=== PATIENT | female | born 1965 | race Caucasian/White ===

== ENCOUNTER → 2023-06-14 | Outpatient (CLI) | payer BC ==
[~2023-06-14] MED LIST: ISOVUE-370 76% 100ML VIAL As Ordered ONE
== END ==
LOC: M RAD 13:28
PROVIDERS: ATTEND Otolaryngology
DX: R22.1 Localized swelling, mass and lump, neck (principal); D17.0 Benign lipomatous neoplasm of skin and subcutaneous tissue of head, face and neck
CPT/HCPCS: 70491; Q9967

== ENCOUNTER 2023-09-26 09:17 | Day surgery (SDC) | payer BC ==
[~2023-09-26] VITALS: Ht 147.3 cm; Wt 73.0 kg
[~2023-09-26 09:17] MED LIST changes: +ATOR1TAB19 PO; +BUPR300T92 PO; -ISOVUE-370 76% 100ML VIAL As Ordered ONE; +SYNT112T2 PO; +TOPR25TA PO; +ZOLO100T PO
[2023-09-26] MEDS ORDERED: LR 1,000 ML IV SCH ×2 (10:35→14:50)
[2023-09-26] MEDS ORDERED: ONDANSETRON 4MG 2ML VIAL IV ONE (10:40)
[2023-09-26] MEDS ORDERED: fentaNYL 250 MCG/5 ML INJECTION As Ordered ONE (12:22)
[2023-09-26] MEDS ORDERED: ONDANSETRON 4MG 2ML VIAL As Ordered ONE (12:22)
[2023-09-26] MEDS ORDERED: MIDAZOLAM INJ 2MG/2ML VIAL As Ordered ONE (12:22)
[2023-09-26] MEDS ORDERED: propofoL 200 MG/20 ML VIAL As Ordered ONE (12:23)
[2023-09-26] MEDS ORDERED: ACETAMINOPHEN 1000MG 100ML IV BAG As Ordered ONE (12:23)
[2023-09-26] MEDS ORDERED: LIDOCAINE 2% 100MG/5ML SDV (FOR ANES.) As Ordered ONE (12:23)
[2023-09-26] MEDS ORDERED: ROCURONIUM BROMIDE 50MG/5ML VIAL As Ordered ONE (12:33)
[2023-09-26] MEDS ORDERED: ePHEDrine SULFATE 25 MG/5 ML(5MG/ML) SYRINGE As Ordered ONE (13:11)
[2023-09-26] MEDS ORDERED: HYDROmorphone HCL 2MG/ML 1ML VIAL As Ordered ONE (13:24)
[2023-09-26] MEDS ORDERED: SUCCINYLCHOLINE 100MG/5ML SYRINGE As Ordered ONE (13:27)
[2023-09-26] MEDS: POVIDONE-IODINE 5% OPHTH PREP SOL 30ML As Ordered ONE (13:54)
[2023-09-26] MEDS: BACITRACIN OINTMENT 30GM TUBE As Ordered ONE (14:40)
[2023-09-26] MEDS: LIDOCAINE W/EPINEPHRINE 1% 20ML VIAL As Ordered ONE (14:45)
[2023-09-26] MEDS ORDERED: oxyCODONE 5MG TAB PO PRN (14:50)
[2023-09-26] MEDS ORDERED: ONDANSETRON 4MG 2ML VIAL IV PRN (14:50)
[2023-09-26] MEDS ORDERED: fentaNYL 100 MCG/2 ML INJECTION IV PRN (14:50)
[2023-09-26] MEDS ORDERED: HYDROMORPHONE HCL 0.5 MG/ 0.5 ML SYRINGE IV PRN (14:50)
[2023-09-26] MEDS ORDERED: IPRATROPIUM 0.02% SOLN 0.5MG 2.5ML NEB NEB ONE (15:45)
[2023-09-26] MEDS: IPRATROPIUM 0.5MG/ALBUTEROL 2.5MG INH SOL UD 3ML (DUONEB) NEB ONE (15:52)
[2023-09-26 17:30] VITALS: BP 162/77; TEMP 97.8; O2SAT 94
== END 2023-09-26 18:01 | disposition home or self-care (01) ==
LOC: M SDC 09:17
PROVIDERS: ATTEND Otolaryngology
DX: D17.21 Benign lipomatous neoplasm of skin and subcutaneous tissue of right arm (principal); I10 Essential (primary) hypertension; E78.5 Hyperlipidemia, unspecified; E03.9 Hypothyroidism, unspecified; Z79.899 Other long term (current) drug therapy; F41.9 Anxiety disorder, unspecified; F32.A Depression, unspecified
CPT/HCPCS: 21552; 88305; J0131; J0330; J1100; J1170; J2250; J2405; J3010